=== PATIENT | female | born 1955 | race Caucasian/White ===

== ENCOUNTER 2021-06-29 15:20 | Outpatient (RCR) | payer MEDICARE, SELFPAY | END 2021-07-27 23:59 | disposition home or self-care (01) | LOC: MOT 15:20 | PROVIDERS: Absent Provider Orthopaedic Surgery; Family Provider Family Medicine; PCP Family Medicine; Referring Provider Orthopaedic Surgery; Visit Provider Orthopaedic Surgery | DX: M79.644 Pain in right finger(s) (principal) | CPT/HCPCS: 97018; 97110; 97140; 97166 ==

== ENCOUNTER 2021-07-28 06:00 | Outpatient (RCR) | payer MEDICARE, SELFPAY | END 2021-08-26 23:59 | disposition home or self-care (01) | LOC: MOT 06:00 | PROVIDERS: PCP Family Medicine; Referring Provider Orthopaedic Surgery; Visit Provider Orthopaedic Surgery | DX: M79.644 Pain in right finger(s) (principal) | CPT/HCPCS: 97110; 97140 ==

== ENCOUNTER 2021-11-25 06:00 | Outpatient (RCR) | payer MEDICARE, SELFPAY | END 2021-11-26 23:59 | disposition home or self-care (01) | LOC: MPT 06:00 | PROVIDERS: PCP Family Medicine; Visit Provider Neurological Surgery | DX: M47.22 Other spondylosis with radiculopathy, cervical region (principal) | CPT/HCPCS: 97110; 97162 ==

== ENCOUNTER 2021-11-27 14:04 | Outpatient (RCR) | payer MEDICARE, SELFPAY | END 2021-12-27 23:59 | disposition home or self-care (01) | LOC: MPT 14:04 | PROVIDERS: PCP Family Medicine; Visit Provider Neurological Surgery | DX: M47.22 Other spondylosis with radiculopathy, cervical region (principal) | CPT/HCPCS: 97110; 97140; G0283 ==

== ENCOUNTER 2021-12-28 06:00 | Outpatient (RCR) | payer MEDICARE, SELFPAY | END 2022-01-26 23:59 | disposition home or self-care (01) | LOC: MPT 06:00 | PROVIDERS: PCP Family Medicine; Visit Provider Neurological Surgery | DX: M47.22 Other spondylosis with radiculopathy, cervical region (principal) | CPT/HCPCS: 97140 ==

== ENCOUNTER → 2024-03-06 09:59 | Outpatient (BNVA) | payer MEDICARE, SELFPAY | PROVIDERS: PCP Family Medicine; Referring Provider Family Medicine; Visit Provider Anesthesiology Pain Medicine | DX: M54.2 Cervicalgia (principal); F11.90 Opioid use, unspecified, uncomplicated; M25.521 Pain in right elbow | CPT/HCPCS: 99204 ==

== ENCOUNTER → 2024-03-21 14:25 | Outpatient (BNVA) | payer MEDICARE, SELFPAY | PROVIDERS: PCP Family Medicine; Visit Provider Physician Assistant | DX: M25.521 Pain in right elbow (principal); M25.511 Pain in right shoulder; M77.11 Lateral epicondylitis, right elbow | CPT/HCPCS: 20605; 73030; 73080; 99203; J3301; J3490 ==

== ENCOUNTER 2024-05-17 11:52 | Outpatient (CLI) | payer MEDICARE, SELFPAY ==
--- NOTE | 2024-05-17 12:14 | XRR_ITS ---
PROCEDURE INFORMATION: Exam: XR Cervical Spine Exam date and time: 05/17/2024 12:19 PM Age: 68 years old Clinical indication: Radicular pain (radiculopathy); Cervical region; Additional info: Cervical ridiculopathy TECHNIQUE: Imaging protocol: Radiologic exam of the cervical spine. Views: 4 or 5 views. COMPARISON: CR XR shoulder RT min 2V* [id number] 03/21/2024 2:42 PM FINDINGS: Bones/joints: Straightening of cervical lordosis. There is intervertebral disc narrowing seen at C3-C4, C4-C5, C5-C6 and C6-C7 levels. Anterior bony spurring changes at multiple levels. There is neural foraminal narrowing on the right side at C4-C5 and C5-C6 levels. No cervical fracture or facet subluxation. Soft tissues: Unremarkable. XR/XR cervical spine 4-5V [id number] IMPRESSION: Multilevel cervical spondylosis as described.
== END 2024-05-17 11:53 | disposition home or self-care (01) ==
LOC: RAD 11:54
PROVIDERS: PCP Family Medicine; Visit Provider Student in an Organized Health Care Education/Training Program
DX: M54.12 Radiculopathy, cervical region (principal); M47.892 Other spondylosis, cervical region; M48.02 Spinal stenosis, cervical region; M50.21 Other cervical disc displacement, high cervical region; M50.221 Other cervical disc displacement at C4-C5 level; M50.222 Other cervical disc displacement at C5-C6 level; M50.223 Other cervical disc displacement at C6-C7 level
CPT/HCPCS: 72050

== ENCOUNTER → 2024-06-11 13:43 | Outpatient (BNVA) | payer MEDICARE, SELFPAY | PROVIDERS: PCP Family Medicine; Visit Provider Family Medicine | DX: I10 Essential (primary) hypertension (principal); I25.10 Atherosclerotic heart disease of native coronary artery without angina pectoris | CPT/HCPCS: 80053; 80061 ==

== ENCOUNTER → 2024-12-05 11:09 | Outpatient (BNVA) | payer MEDICARE, SELFPAY | PROVIDERS: PCP Family Medicine; Visit Provider Nurse Practitioner | DX: R09.89 Other specified symptoms and signs involving the circulatory and respiratory systems (principal) | CPT/HCPCS: 71046 ==

== ENCOUNTER → 2024-12-12 11:26 | Outpatient (BNVA) | payer MEDICARE, SELFPAY | PROVIDERS: PCP Family Medicine; Visit Provider Nurse Practitioner | DX: J22 Unspecified acute lower respiratory infection (principal) | CPT/HCPCS: 71046; 85025 ==